=== PATIENT | male | born 1995 | race African-American/Black ===

== ENCOUNTER 2016-12-22 19:15 | Emergency (ER) | payer OTHER ==
[2016-12-22 19:27] VITALS: BP 112/66; PULSE 101; TEMP 99.6; BMI 23.7
[2016-12-22] MEDS ORDERED: ACETAMINOPHEN 325 MG TABLET (FP) ONE (19:48)
--- NOTE | 2016-12-22 21:53 | PDOC ---
History of Present Illness - General Chief Complaint: Sore Throat Stated Complaint: COLD SYMPTOMS Time Seen by Provider: 12/22/16 20:49 - History of Present Illness Initial Comments: 12/22/16 21:45 CHIEF COMPLAINT: sore throat HISTORY OF PRESENT ILLNESS: 21 yo M with no PMH presents to [facility] with pain to throat and fever since this morning. He states he has had a headache for two days and today woke up with a fever of 102F and felt lightheaded and that his whole body felt uncomfortable. He denies any nausea, vomiting, diarrhea. Brother was recently treated for strep. Denies cough, runny nose, sneezing, any other URI symptoms. No recent travel or sick contacts. PAST MEDICAL HISTORY: Denies past medical history FAMILY HISTORY: Denies SOCIAL HISTORY: Denies tobacco, alcohol, illicit drug use. SURGICAL HISTORY: Denies ALLERGIES: PCN REVIEW OF SYSTEMS General/Constitutional: Denies fever or chills. Denies weakness, weight change. HEENT: Throat pain today. Denies change in vision. Denies ear pain or discharge. Denies sore throat. Cardiovascular: Denies chest pain or shortness of breath. Respiratory: Denies cough, wheezing, or hemoptysis. Gastrointestinal: Denies nausea, vomiting, diarrhea or constipation. Denies rectal bleeding. Genitourinary: Denies dysuria, frequency, or change in urination. Musculoskeletal: "Back chest discomfort." Denies joint or muscle swelling or pain. Denies neck or back pain. Skin and breasts: Denies rash or easy bruising. PHYSICAL EXAM General Appearance: Well-appearing, appropriately dressed. No apparent distress , no intoxication. HEENT: Eryhtematous 2+ tonsils b/l with exudate to L tonsil. EOMI, PERRLA, normal ENT inspection, normal voice, TMs normal, pharynx normal. No conjunctival pallor. No photophobia, scleral icterus. Neck: Supple. Trachea midline. No tenderness, rigidity, carotid bruit, stridor , lymphadenopathy, or thyromegaly. Respiratory/Chest: Lungs CTAB. No shortness of breath, chest tenderness, respiratory distress, accessory muscle use. No crackles, rales, rhonchi, stridor , wheezing, dullness Cardiovascular: RRR. S1, S2. No JVD, murmur, bradycardia, tachycardia. Vascular Pulses: Dorsalis-Pedis (R): 2+, Dorsalis-Pedis (L): 2+ Gastrointestinal/Abdominal: Normal bowel sounds. Abdomen soft, non-distended. No tenderness or rebound tenderness. No organomegaly, pulsatile mass, guarding , hernia, hepatomegaly, splenomegaly. Lymphatic: No adenopathy, tenderness. Musculoskeletal/Extremities: Normal inspection. FROM of all extremities, normal capillary refill. Pelvis Stable. No CVA tenderness. No tenderness to extremities, pedal edema, swelling, erythema or deformity. Integumentary: Appropriate color, dry, warm. 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 Fully oriented, alert. Appropriate mood/affect. Motor strength 5/5. No appreciable EOM palsy, facial droop or sensory deficit. Past History - Past Medical History Allergies/Adverse Reactions: Allergies Allergy/AdvReac Type Severity Reaction Status Date / Time No Known Allergies Allergy Verified 12/22/16 19:27 Home Medications: Ambulatory Orders Azithromycin 500 mg PO DAILY #6 tablet 12/22/16 Ibuprofen 600 mg PO TID PRN #21 tablet 12/22/16 Other medical history: denies - Immunization History Immunization Up to Date: Yes - Psycho/Social/Smoking Cessation Hx Suicidal Ideation: No Smoking History: Never smoked Have you smoked in the past 12 months: No Information on smoking cessation initiated: No Hx Alcohol Use: No Drug/Substance Use Hx: No Substance Use Type: None *Physical Exam - Vital Signs Last Vital Signs Temp Pulse Resp BP Pulse Ox 99.6 F 101 H 20 112/66 99 12/22/16 19:22 12/22/16 19:22 12/22/16 19:22 12/22/16 19:22 12/22/16 19:22 Medical Decision Making - Medical Decision Making 12/22/16 21:53 21 yo M with no PMH presents to [facility] with pain to throat and fever since this morning. -Rapid strep -Tylenol given 12/22/16 22:00 Patient allergic to pcn, will rx Zpack. Advised patient to take medications as prescribed and of signs and symptoms for return to ER. Patient verbalized understanding and agrees to plan. *DC/Admit/Observation/Transfer - Discharge Dispostion Disposition: HOME Condition at time of disposition: Stable Admit: No - Prescriptions Prescriptions: Azithromycin 500 mg PO DAILY #6 tablet Ibuprofen 600 mg PO TID PRN #21 tablet PRN Reason: Pain Or Fever - Referrals Referrals: Brad Oliva MD [Primary Care Provider] -
== END 2016-12-22 22:12 | disposition home or self-care (01) ==
LOC: JERFT 19:15
DX: J02.9 Acute pharyngitis, unspecified (principal)
CPT/HCPCS: 87070; 87430; 99281-25

== ENCOUNTER 2018-06-04 07:16 | Emergency (ER) | payer SELFPAY ==
[2018-06-04 07:28] VITALS: BP 123/80; PULSE 76; TEMP 98.1; BMI 26.2
[2018-06-04] MEDS ORDERED: IBUPROFEN 400 MG TABLET (FP) PO ONE ×2 (08:31→08:34)
--- NOTE | 2018-06-04 08:38 | PDOC ---
History of Present Illness - General Chief Complaint: Back Pain Stated Complaint: LBP Time Seen by Provider: 06/04/18 08:24 History Source: Patient Exam Limitations: No Limitations - History of Present Illness Initial Comments: 06/04/18 08:35 22 yr male no pmhx states one week low back pain worse with movement no abd pain neg urinary complaints. Past History - Past Medical History Allergies/Adverse Reactions: Allergies Allergy/AdvReac Type Severity Reaction Status Date / Time Penicillins Allergy Verified 06/04/18 07:28 Home Medications: Ambulatory Orders Cyclobenzaprine HCl [Flexeril -] 10 mg PO TID PRN #21 tablet 06/04/18 Ibuprofen 800 mg PO TID PRN #21 tablet 06/04/18 COPD: No - Immunization History Immunization Up to Date: Yes - Suicide/Smoking/Psychosocial Hx Smoking History: Never smoked Have you smoked in the past 12 months: No Information on smoking cessation initiated: No Hx Alcohol Use: No Drug/Substance Use Hx: No Substance Use Type: None *Physical Exam - Vital Signs Last Vital Signs Temp Pulse Resp BP Pulse Ox 98.1 F 76 17 123/80 100 06/04/18 07:26 06/04/18 07:26 06/04/18 07:26 06/04/18 07:26 06/04/18 07:26 - Physical Exam General Appearance: Yes: Nourished, Appropriately Dressed HEENT: positive: EOMI, CHRISTIANO, Normal ENT Inspection, TMs Normal, Pharynx Normal Neck: positive: Supple. negative: Tender Respiratory/Chest: positive: Lungs Clear, Normal Breath Sounds. negative: Chest Tender Cardiovascular: positive: Regular Rhythm, Regular Rate Gastrointestinal/Abdominal: positive: Normal Bowel Sounds, Soft. negative: Tender Lymphatic: negative: Adenopathy Musculoskeletal: positive: Normal Inspection, Muscle Spasm (lumbar paraspinal soft tissue ). negative: CVA Tenderness, CVA Tenderness (R), CVA Tenderness (L) , Decreased Range of Motion, Vertebral Tenderness Extremity: positive: Normal Capillary Refill, Normal Inspection, Normal Range of Motion Integumentary: positive: Normal Color, Dry, Warm Neurologic: positive: Fully Oriented, Alert, Normal Mood/Affect, Normal Response , Motor Strength 5/5 Moderate Sedation - Procedure Monitoring Vital Signs: Procedure Monitoring Vital Signs Temperature 98.1 F 06/04/18 07:26 Pulse Rate 76 06/04/18 07:26 Respiratory Rate 17 06/04/18 07:26 Blood Pressure 123/80 06/04/18 07:26 O2 Sat by Pulse Oximetry (%) 100 06/04/18 07:26 Medical Decision Making - Medical Decision Making 06/04/18 08:39 cc: low back pain one week worse with movement denies urine or bowel dysfunction neg saddle anesthesia will give motrin now pt refused toradol shot pt ambulatory no distress 06/04/18 08:47 *DC/Admit/Observation/Transfer Diagnosis at time of Disposition: Low back pain Qualifiers: Chronicity: acute Back pain laterality: left Sciatica presence: without sciatica Qualified Code(s): M54.5 - Low back pain - Discharge Dispostion Disposition: HOME Condition at time of disposition: Good - Prescriptions Prescriptions: Cyclobenzaprine HCl [Flexeril -] 10 mg PO TID PRN #21 tablet PRN Reason: Muscle Spasms Ibuprofen 800 mg PO TID PRN #21 tablet PRN Reason: Back Pain - Referrals Referrals: Brad Oliva MD [Primary Care Provider] - Reji Gavin MD, FAANS [Staff Physician] - - Patient Instructions Additional Instructions: follow with if pain does not improve with the medication or if the pain is worse apply heating pad to lower back every 3-4hrs for 20 minutes apply a topical cream such as Icy Hot or [place] to the low back muscles avoid heavy lifting and bending Return to ER for any severe pain - Post Discharge Activity Forms/Work/School Notes: Back to Work
== END 2018-06-04 08:47 | disposition home or self-care (01) ==
LOC: JERFT 07:16 → JER 07:16 → JERFT 08:47
DX: M54.5 Low back pain (principal)
CPT/HCPCS: 99281-25

== ENCOUNTER 2021-05-24 13:50 | Emergency (ER) | payer OTHER ==
[2021-05-24 14:16] VITALS: BP 119/82; PULSE 70; TEMP 98.4; BMI 26.3
== END 2021-05-24 15:06 | disposition home or self-care (01) ==
LOC: JERFT 13:50
DX: J06.9 Acute upper respiratory infection, unspecified (principal)
CPT/HCPCS: 99283-25; C9803; U0003; U0005